=== PATIENT | male | born 1965 | race Caucasian/White ===

== ENCOUNTER 2018-03-23 10:53 | Day surgery (SDC) | payer OTHER ==
[~2018-03-23] VITALS: Ht 172.7 cm; Wt 108.0 kg
[~2018-03-23 10:53] MED LIST: ALLO300T PO; ALPR0.254 PO; ALPR0.5T6 PO; ATOR20TA37 PO; CYCL5TAB PO; DIPH25TA65 PO; HYDR-3237 PO; HYDR2TAB40 PO; LISI-167 PO; METH750T2 PO; NO MEDS; SENN8.6T79 PO; SIMV20TA3 PO
[2018-03-23 11:34] VITALS: BP 135/85
[2018-03-23] MEDS ORDERED: LACTATED RINGERS 1,000 ML IV SCH (12:18)
[2018-03-23] MEDS ORDERED: FENTANYL PF 100 MCG/2ML ONE (12:51)
[2018-03-23] MEDS ORDERED: MIDAZOLAM 1 MG/ML, 2ML ONE (12:52)
[2018-03-23] MEDS ORDERED: PROPOFOL 50 ML ONE (12:52)
[2018-03-23] MEDS ORDERED: MIDAZOLAM 1 MG/ML, 2ML IV PRN (14:00)
[2018-03-23] MEDS ORDERED: DIPHENHYDRAMINE 50 MG/ML, 1ML IVPush PRN (14:00)
[2018-03-23] MEDS ORDERED: ACETAMINOPHEN 325 MG TABLET PO PRN (14:00)
[2018-03-23] MEDS ORDERED: FENTANYL PF 100 MCG/2ML IV PRN (14:00)
[2018-03-23] MEDS ORDERED: DIAZEPAM 5 MG/ML, 2ML IVPush PRN (14:00)
[2018-03-23] MEDS ORDERED: PROMETHAZINE 25 MG/ML, 1ML IV PRN (14:00)
[2018-03-23] MEDS ORDERED: EPHEDRINE 50 MG/ML, 1ML IM PRN (14:00)
[2018-03-23] MEDS ORDERED: DEXAMETHASONE 4 MG/ML, 1ML IV PRN (14:00)
[2018-03-23] MEDS ORDERED: LORazepam 2 MG/ML, 1ML IVPush PRN (14:00)
[2018-03-23] MEDS ORDERED: ONDANSETRON ODT 8 MG PO PRN (14:00)
[2018-03-23] MEDS ORDERED: ONDANSETRON 2MG/ML, 2ML IV PRN (14:00)
== END 2018-03-23 15:20 | disposition home or self-care (01) ==
LOC: OUT 10:53 → EDSTATUS 12:45 → OUT 15:20
PROVIDERS: ATTEND Family Medicine
DX: M54.12 Radiculopathy, cervical region (principal); I10 Essential (primary) hypertension; E78.00 Pure hypercholesterolemia, unspecified; K21.9 Gastro-esophageal reflux disease without esophagitis; F41.9 Anxiety disorder, unspecified
CPT/HCPCS: 72100; 72141; J2250; J2704; J3010; J7120

== ENCOUNTER 2018-12-16 06:44 | Outpatient (CLI) | payer OTHER | END 2018-12-16 23:59 | disposition home or self-care (01) | LOC: CFH 06:44 | PROVIDERS: ATTEND Orthopaedic Surgery | DX: M76.71 Peroneal tendinitis, right leg (principal); M25.731 Osteophyte, right wrist; M25.572 Pain in left ankle and joints of left foot ==

== ENCOUNTER 2020-06-05 11:44 | Outpatient (CLI) | payer OTHER ==
[~2020-06-05 11:44] MED LIST changes: -ALPR0.5T6 PO; +ALPR0.5T93 PO; +METH-640 PO; -METH750T2 PO; +SIMV20TA19 PO; -SIMV20TA3 PO
== END 2020-06-05 23:59 | disposition home or self-care (01) ==
LOC: STAR 11:44
PROVIDERS: ATTEND Orthopaedic Surgery
DX: Z20.822 Contact with and (suspected) exposure to COVID-19 (principal)
CPT/HCPCS: U0003

== ENCOUNTER 2020-06-11 08:27 | Day surgery (SDC) | payer OTHER ==
[~2020-06-11] VITALS: Ht 172.7 cm; Wt 113.8 kg
[2020-06-11] MEDS ORDERED: CHLORHEXIDINE 15 ML UDC ONE (09:24)
[2020-06-11] MEDS ORDERED: CHLORHEXIDINE 15 ML UDC PO ONE (09:30)
[2020-06-11] MEDS ORDERED: LACTATED RINGERS 1,000 ML IV SCH (09:30)
[2020-06-11] MEDS ORDERED: TRAZ-175 PO (09:34)
[2020-06-11] MEDS ORDERED: ONDA4TAB7 PO (09:34)
[2020-06-11] MEDS ORDERED: TAMS-11 PO (09:34)
[2020-06-11] MEDS ORDERED: OMEP40CA42 PO (09:34)
[2020-06-11 09:38] VITALS: BP 119/82
[2020-06-11] MEDS ORDERED: PLEASE ENTER HEIGHT AND WEIGHT MC SCH (10:00)
[2020-06-11] MEDS ORDERED: FENTANYL PF 100 MCG/2ML ONE (10:09)
[2020-06-11] MEDS ORDERED: PROPOFOL 10 MG/ML, 20ML ONE (11:21)
[2020-06-11] MEDS ORDERED: hydrALAzine 20 MG/ML, 1ML IV PRN (12:00)
[2020-06-11] MEDS ORDERED: ONDANSETRON 2MG/ML, 2ML IVPush PRN (12:00)
[2020-06-11] MEDS ORDERED: DIPHENHYDRAMINE 50 MG/ML, 1ML IVPush PRN (12:00)
[2020-06-11] MEDS ORDERED: LABETALOL 5MG/ML, 20ML IV PRN (12:00)
[2020-06-11] MEDS ORDERED: FENTANYL PF 100 MCG/2ML IV PRN (12:00)
== END 2020-06-11 13:05 | disposition home or self-care (01) ==
LOC: OUT 08:27 → EDSTATUS 10:30 → OUT 13:05
PROVIDERS: ATTEND Orthopaedic Surgery
DX: M25.512 Pain in left shoulder (principal); M25.511 Pain in right shoulder; I10 Essential (primary) hypertension; M79.7 Fibromyalgia; E78.5 Hyperlipidemia, unspecified; K21.9 Gastro-esophageal reflux disease without esophagitis; F12.90 Cannabis use, unspecified, uncomplicated; F17.210 Nicotine dependence, cigarettes, uncomplicated; Z88.5 Allergy status to narcotic agent; Z88.1 Allergy status to other antibiotic agents; Z88.8 Allergy status to other drugs, medicaments and biological substances; Z72.89 Other problems related to lifestyle; Z79.899 Other long term (current) drug therapy
CPT/HCPCS: 73221; J2704; J3010